=== PATIENT | male | born 1965 | race Caucasian/White ===

== ENCOUNTER 2017-10-03 10:25 | Observation (INO) ==
[2017-10-03] MEDS ORDERED: Sod Chloride 0.9% Inj 1,000 ML IV.SIG ONE (10:57)
--- NOTE | 2017-10-03 11:29 | XR ---
EXAM DATE: 10/03/2017 11:25 AM EDT AGE/SEX: 52 years / Male INDICATIONS: Chest pain with dizziness since last night CLINICAL DATA: This is the patient's initial encounter. Patient reports that signs and symptoms have been present for 2 days and indicates a pain score of 6/10. MEDICAL/SURGICAL HISTORY: None. None. COMPARISON: [facility] [place], CHEST SINGLE AP, 12/22/2015. . FINDINGS: A single AP view of the chest demonstrates the lungs to be symmetrically aerated without evidence of mass, infiltrate or effusion. The cardiomediastinal contours are unremarkable. Osseous structures a re intact. CONCLUSION: Negative examination. Electronically signed by: Arnel Laird MD 10/03/2017 11:28 AM EDT
--- NOTE | 2017-10-03 11:34 | CT ---
EXAM DATE: 10/03/2017 11:31 AM EDT AGE/SEX: 52 years / Male INDICATIONS: Dizziness. CLINICAL DATA: This is the patient's initial encounter. Patient reports that signs and symptoms have been present for 1 week and indicates a pain score of 0/10. MEDICAL/SURGICAL HISTORY: Cardiovascular disease. Hypertension. Coronary artery stent. RADIATION DOSE: 56.50 CTDI (mGy) COMPARISON: No prior exams available for comparison. TECHNIQUE: CT of the head without contrast. Using automated exposure control and adjustment of the mA and/or kV according to patient size, radiation dose was kept as low as reasonably achievable to ob tain optimal diagnostic quality images. DICOM format image data is available electronically for revi ew and comparison. FINDINGS: Cerebrum: The ventricles are normal for age. No evidence of midline shift, mass lesion, hemorrhage or acute infarction. No extraaxial fluid collections are seen. Posterior Fossa: The cerebellum and brainstem are intact. The 4th ventricle is midline. The cerebe llopontine angle is unremarkable. Extracranial: The visualized portion of the orbits is intact. Skull: The calvaria is intact. No evidence of skull fracture. CONCLUSION: 1. Negative CT Head non contrast. 2. No evidence of acute infarct, hemorrhage, mass or edema. . Electronically signed by: Cyril Briggs MD 10/03/2017 11:32 AM EDT
[2017-10-03 11:54] LABS: Baso # (Auto) 0.3 th/mm3 (0.0-0.2); Baso % (Auto) 3.4 % (0.0-2.0); Eos % (Auto) 0.4 % (0.0-4.0); Hematocrit 39.8 % (39.0-51.0); Hemoglobin 13.8 gm/dL (13.0-17.0); Lymph # (Auto) 1.3 th/mm3 (1.0-4.8); Lymph % (Auto) 16.5 % (9.0-44.0); Mean Corpuscular HGB Conc 34.8 % (32.0-36.0); Mean Corpuscular Hemoglobin 32.3 pg (27.0-34.0); Mean Corpuscular Volume 92.9 fL (80.0-100.0); Mean Platelet Volume 7.2 fL (7.0-11.0); Mono # (Auto) 0.5 th/mm3 (0.0-0.9); Mono % (Auto) 5.7 % (0.0-8.0); Platelet Count 259 th/mm3 (150-450); Red Blood Count 4.28 mil/mm3 (4.50-5.90); Red Cell Distribution Width 12.2 % (11.6-17.2); White Blood Count 8.1 th/mm3 (4.0-11.0)
[2017-10-03 12:00] LABS: Chloride 106 meq/L (98-107); Sodium 140 meq/L (136-145)
--- NOTE | 2017-10-03 12:02 | ED ---
HPI General Chief complaint: Dizziness Stated complaint: Dizziness/sweating/confusion Time Seen by Provider: 10/03/17 10:49 Source: patient Mode of arrival: ambulatory Limitations: no limitations History of Present Illness HPI narrative: Patient is a 52-year-old male with history of coronary artery disease with one cardiac stent placed 2 years ago, hypertension and hyperlipidemia, was sent to the emergency room by his primary care doctor, Dr. Romano for evaluation of near syncopal episode. Patient reports that he has not been feeling well since last night. Patient reports that symptoms began while he was making dinner last night. Patient reports that he was feeling hot and sweaty, reports that it felt as if everything was "closing in on me," reports that he began to have blurry vision with dizziness and headache. Patient reports that he went to Dr. Romano's office today for evaluation of this, he was sent to the emergency room for evaluation. Patient denies any chest pain at this time, reports that the dizziness has improved. Patient reports that symptoms last night were atypical for him as he has never had these symptoms in the past. Patient denies any syncopal episode but does report that he felt as if he was going to pass out. Patient denies any fever or chills, denies any cough or congestion, patient with no other complaints. Related Data Home Medications Medication Instructions Recorded Confirmed aspirin [Aspir-81] 81 mg PO DAILY 10/03/17 10/03/17 atorvastatin 40 mg PO DAILY 10/03/17 10/03/17 clopidogrel [Plavix] 75 mg PO DAILY 10/03/17 10/03/17 hydrocodone-acetaminophen 1 tab PO Q4-6H PRN 10/03/17 10/03/17 lorazepam 0.5 mg PO DAILY 10/03/17 10/03/17 losartan 50 mg PO DAILY 10/03/17 10/03/17 metoprolol tartrate 12.5 mg PO BID 10/03/17 10/03/17 Allergies Allergy/AdvReac Type Severity Reaction Status Date / Time No Known Allergies Allergy Verified 10/03/17 11:22 Review of Systems Except as stated in HPI: all other systems reviewed are negative [facility] Medical History Medical History Hypertension (Acute) Surgical History Surgical History Stented coronary artery (Acute) Social History Social History Substance History: No History of Abuse Smoking Status: Never smoker How Often Do You Have a Drink Containing Alcohol: 2 to 4 times a month Recent Travel in [facility] within the Last 8 Weeks: No Recent Out of Country Travel within the Last 8 Weeks: No Immunization History Tetanus Immunization: >5 Years Hx Influenza Vaccine This Season: No Exam Narrative Exam Narrative: GENERAL: moderate distress SKIN: Focused skin assessment warm/dry. HEAD: Atraumatic. Normocephalic. EYES: Pupils equal and round. No scleral icterus. No injection or drainage. ENT: No nasal bleeding or discharge. Mucous membranes pink and moist. NECK: Trachea midline. No JVD. CARDIOVASCULAR: Regular rate and rhythm. No murmur appreciated. RESPIRATORY: No accessory muscle use. Clear to auscultation. Breath sounds equal bilaterally. GASTROINTESTINAL: Abdomen soft, non-tender, nondistended. Hepatic and splenic margins not palpable. MUSCULOSKELETAL: No obvious deformities. No clubbing. No cyanosis. No edema. NEUROLOGICAL: Awake and alert. No obvious cranial nerve deficits. Motor grossly within normal limits. Normal speech. CN 2-12 grossly intact with no neurological deficits PSYCHIATRIC: Anxious mood and affect; insight and judgment normal. Course Initial Documented Vital Signs Temperature 99.3 F 10/03/17 10:32 Pulse Rate 77 10/03/17 10:32 Respiratory Rate 16 10/03/17 10:32 Blood Pressure 149/91 H 10/03/17 10:32 Pulse Oximetry 99 10/03/17 10:32 Last Documented Vital Signs Temperature 99.3 F 10/03/17 10:32 Pulse Rate 72 10/03/17 14:18 Respiratory Rate 18 10/03/17 14:18 Blood Pressure 140/89 10/03/17 14:18 Pulse Oximetry 98 10/03/17 14:18 Medical Decision Making MDM Narrative Medical decision making narrative: During the course of the patients emergency department visit, the patients history, examination, and differential diagnosis were reviewed with the patient. The patient was placed on a set up mechanic automatic line with oximetry and frequent blood pressure monitoring. The patient had an IV access obtained and blood work sent for analysis. A syncope workup was initiated The patient was initially provided with IVF Labs and studies were reviewed - plan to give aspirin and obs for near syncope Discussed case with Dr. Romano's [employer] - patient was sent to the ER for admission as the last time he had these symptoms - he required 1 cardiac stent. Patient now agreeable to observation. Case reviewed with Dr. Mercer who accepts pt to service Differential Diagnosis Differential Diagnosis: Differential includes ACS, arrhythmia, orthostatic hypotension, electrolyte abnormality, VBI Medical Records Medical records reviewed: Yes I reviewed the patient's medical records. Lab Data Lab results reviewed: Yes I reviewed the patient's lab results. Result diagrams: 10/03/17 11:35 10/03/17 11:35 Lab Results 10/03/17 10/03/17 10/03/17 Range/Units 11:35 11:35 11:35 CBC w Diff Auto diff final WBC 8.1 (4.0-11.0) th/mm3 RBC 4.28 L (4.50-5.90) mil/mm3 Hgb 13.8 (13.0-17.0) gm/dL Hct 39.8 (39.0-51.0) % MCV 92.9 (80.0-100.0) fL MCH 32.3 (27.0-34.0) pg MCHC 34.8 (32.0-36.0) % RDW 12.2 (11.6-17.2) % Plt Count 259 (150-450) th/mm3 MPV 7.2 (7.0-11.0) fL Neut % (Auto) 74.0 H (16.0-70.0) % Lymph % (Auto) 16.5 (9.0-44.0) % [place] % (Auto) 5.7 (0.0-8.0) % Eos % (Auto) 0.4 (0.0-4.0) % Baso % (Auto) 3.4 H (0.0-2.0) % Neut # (Auto) 6.0 (1.8-7.7) th/mm3 Lymph # (Auto) 1.3 (1.0-4.8) th/mm3 [place] # (Auto) 0.5 (0.0-0.9) th/mm3 Eos # (Auto) 0.0 (0.0-0.4) th/mm3 Baso # (Auto) 0.3 H (0.0-0.2) th/mm3 WBC Differential . Differential Comment . PT 10.4 (9.8-11.6) sec INR 1.0 Ratio Sodium 140 (136-145) meq/L Potassium 4.0 (3.5-5.1) meq/L Chloride 106 (98-107) meq/L Carbon Dioxide 24.3 (21.0-32.0) meq/L Anion Gap 10 (5-15) meq/L BUN 14 (7-18) mg/dL Creatinine 0.89 (0.60-1.30) mg/dL Estimated GFR 89 (>89) mL/min Random Glucose 98 (74-106) mg/dL Calcium 8.7 (8.5-10.1) mg/dL Total Bilirubin 0.5 (0.2-1.0) mg/dL AST 21 (15-37) U/L ALT 51 (12-78) U/L Alkaline Phosphatase 84 (45-117) U/L Troponin I Less than 0.02 L (0.02-0.05) ng/mL Total Protein 7.8 (6.4-8.2) g/dL Albumin 4.2 (3.4-5.0) g/dL Ur Collection Type Urine Color (Yellw/Straw) Urine Clarity (Clear) Urine pH (5.0-8.5) Ur Specific [place] (1.002-1.035) Urine Protein (Neg-Trace) mg/dL Urine Glucose (UA) (Negative) mg/dL Urine Ketones (Negative) mg/dL Urine Occult Blood (Negative) Urine Nitrate (Negative) Urine Bilirubin (Negative) Urine Urobilinogen (Less than 2) mg/dL Ur Leukocyte Esterase (Negative) Amorphous Sediment (None) /hpf Urine Bacteria (None) /hpf Micro UA Comment Urine Culture Comments 10/03/17 Range/Units 11:50 CBC w Diff WBC (4.0-11.0) th/mm3 RBC (4.50-5.90) mil/mm3 Hgb (13.0-17.0) gm/dL Hct (39.0-51.0) % MCV (80.0-100.0) fL MCH (27.0-34.0) pg MCHC (32.0-36.0) % RDW (11.6-17.2) % Plt Count (150-450) th/mm3 MPV (7.0-11.0) fL Neut % (Auto) (16.0-70.0) % Lymph % (Auto) (9.0-44.0) % [place] % (Auto) (0.0-8.0) % Eos % (Auto) (0.0-4.0) % Baso % (Auto) (0.0-2.0) % Neut # (Auto) (1.8-7.7) th/mm3 Lymph # (Auto) (1.0-4.8) th/mm3 [place] # (Auto) (0.0-0.9) th/mm3 Eos # (Auto) (0.0-0.4) th/mm3 Baso # (Auto) (0.0-0.2) th/mm3 WBC Differential Differential Comment PT (9.8-11.6) sec INR Ratio Sodium (136-145) meq/L Potassium (3.5-5.1) meq/L Chloride (98-107) meq/L Carbon Dioxide (21.0-32.0) meq/L Anion Gap (5-15) meq/L BUN (7-18) mg/dL Creatinine (0.60-1.30) mg/dL Estimated GFR (>89) mL/min Random Glucose (74-106) mg/dL Calcium (8.5-10.1) mg/dL Total Bilirubin (0.2-1.0) mg/dL AST (15-37) U/L ALT (12-78) U/L Alkaline Phosphatase (45-117) U/L Troponin I (0.02-0.05) ng/mL Total Protein (6.4-8.2) g/dL Albumin (3.4-5.0) g/dL Ur Collection Type Clean catch Urine Color Yellow (Yellw/Straw) Urine Clarity Turbid H (Clear) Urine pH 6.0 (5.0-8.5) Ur Specific [place] 1.020 (1.002-1.035) Urine Protein Negative (Neg-Trace) mg/dL Urine Glucose (UA) Negative (Negative) mg/dL Urine Ketones Negative (Negative) mg/dL Urine Occult Blood Negative (Negative) Urine Nitrate Negative (Negative) Urine Bilirubin Negative (Negative) Urine Urobilinogen 0.2 (Less than 2) mg/dL Ur Leukocyte Esterase Negative (Negative) Amorphous Sediment Moderate H (None) /hpf Urine Bacteria Few H (None) /hpf Micro UA Comment Culture not ind Urine Culture Comments Culture not ind Imaging Data Attestation: I personally reviewed and interpreted this imaging study as follows : Radiologist's impression: Chest X-Ray 10/03/17 10:57 CONCLUSION: Negative examination. Head CT 10/03/17 10:58 CONCLUSION: 1. Negative CT Head non contrast. 2. No evidence of acute infarct, hemorrhage, mass or edema. . ECG Data EKG Prior to Arrival: No Attestation: I personally reviewed and interpreted this ECG as follows: Interpretation: EKG at 1142: Normal sinus rhythm at 69 bpm, QT/QTC 402/421, there are no acute ST-T wave changes Discharge Plan Discharge Disposition Patient Disposition: 30 Still Patient Physicians Team ED Provider: Angle Rivera Primary Care Provider: Jett Romano Rxs /Orders / Referrals /Forms Prescriptions: No Action aspirin [Aspir-81] 81 mg Tablet,Delayed Release (Dr/Ec) 81 mg PO DAILY RF: 0 losartan 50 mg Tablet 50 mg PO DAILY RF: 0 atorvastatin 40 mg Tablet 40 mg PO DAILY RF: 0 hydrocodone-acetaminophen 5-325 mg Tablet 1 tab PO Q4-6H PRN (Reason: Pain) RF: 0 clopidogrel [Plavix] 75 mg Tablet 75 mg PO DAILY RF: 0 lorazepam 0.5 mg Tablet 0.5 mg PO DAILY RF: 0 metoprolol tartrate 25 mg Tablet 12.5 mg PO BID RF: 0 Status ED Status: Admitted Observation Patient
[2017-10-03 12:03] LABS: Albumin 4.2 g/dL (3.4-5.0); Anion Gap 10 meq/L (5-15); Calcium 8.7 mg/dL (8.5-10.1); Carbon Dioxide 24.3 meq/L (21.0-32.0); Glucose,Random 98 mg/dL (74-106)
[2017-10-03 12:04] LABS: Blood Urea Nitrogen 14 mg/dL (7-18)
[2017-10-03 12:06] LABS: Alanine Aminotransferase 51 U/L (12-78)
[2017-10-03 12:07] LABS: Aspartate Aminotransferase 21 U/L (15-37); Glomerular Filtration Rate 89 mL/min (>89)
[2017-10-03 12:07] LABS: Bilirubin,Urine Negative (Negative); Clarity,Urine Turbid (Clear); Color,Urine Yellow (Yellw/Straw); Glucose,Urine (UA) Negative (Negative); Leukocyte Esterase,Urine Negative (Negative); Nitrite,Urine Negative (Negative); Urobilinogen,Urine 0.2 mg/dL (Less than 2)
[2017-10-03 12:08] LABS: Total Protein 7.8 g/dL (6.4-8.2)
[2017-10-03 12:09] LABS: Amorphous Sediment,Urine Moderate /hpf
[2017-10-03 12:09] LABS: Alkaline Phosphatase 84 U/L (45-117)
[2017-10-03 12:10] LABS: Bacteria,Urine Few /hpf
[2017-10-03 12:12] LABS: Prothrombin Time 10.4 sec (9.8-11.6)
[2017-10-03 16:15] LABS: Creatine Kinase 86 U/L (39-308)
--- NOTE | 2017-10-03 16:47 | P.HP ---
[facility] of [facility] Illness [facility] Primary Care Physician: Jett Romano MD History of Present Illness: This is a 52-year-old white male with history of coronary artery disease and placement of a coronary artery stent 2 years ago, hypertension, and hyperlipidemia, that was sent to the emergency room by his primary care physician (Dr. Romano). He was seen this morning and Dr. Romano's office and sent to the ER for possible admission for underlying cardiac symptoms. Patient reports that in the last 5 days he has had 3 separate incidents where he would break out in a sweat and then feel as if he was going to pass out. He had may be vague minimal chest tightness and felt some slight shortness of breath when these episodes occur. Usually he would stop and just sit down or lie down for about 10-15 minutes and they would subside. He said 3 of these episodes since Tuesday of last week with the last one being last night. He does not feel any heart palpitations. He had a coronary artery stent placed 2 years ago and reportedly had symptoms similar to this then. He denies any cough, wheezing, exertional chest pain. Medical history: Hypertension Hyperlipidemia Coronary artery disease with prior PTCA and stent in 2016 Anxiety Chronic low back pain with lumbar radiculopathy No history of lung disease, liver disease, kidney disease, peptic ulcer disease , stroke, seizures, thyroid disease, cancer. Surgical history: PTCA with prior coronary artery stent in 2016 Allergies: None Medications: Aspirin 81 mg once a day Clopidogrel 75 mg once a day Atorvastatin 40 mg once a day Lorazepam 0.5 mg 1 at bedtime Hydrocodoneacetaminophen 10/325 1 tablet 3 times a day Losartan 50 mg once a day Metoprolol 25 mg half a tablet twice a day Family history: Mother at age 56 of lung cancer Father at age 57 ultimately liver failure secondary to antirejection medications for his heart transplant. He also had a prior heart attack. Social history: He is He has never smoked. He only has occasional drink of alcohol consisting of either beer or wine or liquor. 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 - Diagnosis (1) Near syncope (2) Atypical chest pain (3) Coronary artery disease (4) History of coronary artery stent placement (5) Hypertension (6) Hyperlipidemia (7) Anxiety (8) Chronic low back pain Review of Systems Review of systems: General: No fever or chills, weight loss, or chronic fatigue HEENT: No visual complaint, no sore throat, no runny nose, no ear pain Cardiovascular: As noted in the history of present illness Pulmonary: No cough, hemoptysis, or wheezing GI: He did have some nausea in couple episodes of brief vomiting with his near syncopal episode. He denies any heartburn in, indigestion, abdominal pain, constipation, diarrhea, rectal bleeding, or melena. : Denies any dysuria, urgency, frequency of urination, or hematuria Musculoskeletal: He has chronic low back pain with some intermittent lumbar radicular symptoms more on the right side than the left side. Psychiatry: He gets some slight anxiety and claustrophobia at times. He uses Lorazepam at night to help with this at times. Extremities: Denies any edema or calf pain Neuro: He denies any numbness or tingling in his extremities, focal motor deficits. His mentioned that when he has had these episodes he seems a little disoriented for a brief moment. He did not display any seizure like activity. He has just occasional headache. Denies any trouble swallowing or slurring of his speech. He has no problems with ambulation or his gait. [facility] - History History Provided By: Patient - Medical History Medical History: Medical History (Last Updated 10/03/17 @ 15:05 by Federico Mercer MD) Anxiety Chronic low back pain Coronary artery disease Hyperlipidemia Hypertension - Surgical History Surgical History: Surgical History (Last Updated 10/03/17 @ 15:06 by Federico Mercer MD) S/P angioplasty with stent Stented coronary artery - Family History Family History: Family History (Last Updated 10/03/17 @ 15:10 by Federico Mercer MD) Mother Lung cancer Father History of heart attack History of heart transplant History of liver failure Father No problems noted. - Tobacco History Second Hand Smoke Exposure: No Smoking Status: Never smoker - Alcohol History How Often Do You Have a Drink Containing Alcohol: Monthly or less - Substance Use History Substance History: No History of Abuse - Travel History Recent Travel in the [place] Within the Last 8 Weeks: No Recent Travel Out of the Country Within the Last 8 Weeks: No - Immunization History Tetanus Immunization: >5 Years Hx Influenza Vaccine This Season: No Medications and Allergies Active Medications: Active Medications Hydrocodone Bitart/Acetaminophen ([place] 10/325) 1 tab PO Q8HR PRN PRN Reason: Back Pain Aspirin (Ecotrin) 81 mg PO DAILY [facility] Atorvastatin Calcium (Lipitor) 40 mg PO DAILY [facility] Clopidogrel Bisulfate (Plavix) 75 mg PO DAILY [facility] Lorazepam (Ativan) 0.5 mg PO DAILY [facility] Losartan Potassium (Cozaar) 50 mg PO DAILY [facility] Metoprolol Tartrate (Lopressor) 12.5 mg PO BID [facility] Sodium Chloride (Ns Flush) 2 ml IV.FLUSH PRN PRN PRN Reason: FLUSH AFTER USING IV ACCESS Sodium Chloride (Ns Flush) 2 ml IV.FLUSH BID [facility]IDAN Sodium Chloride (Ns Flush) 2 ml IV.FLUSH PRN PRN PRN Reason: FLUSH AFTER USING IV ACCESS Allergies Allergy/AdvReac Type Severity Reaction Status Date / Time No Known Allergies Allergy Verified 10/03/17 11:22 Home Medications Medication Instructions Recorded Confirmed Type RX: atorvastatin 40 mg PO DAILY 10/03/17 10/03/17 History RX: lorazepam 0.5 mg PO DAILY 10/03/17 10/03/17 History RX: losartan 50 mg PO DAILY 10/03/17 10/03/17 History RX: metoprolol tartrate 12.5 mg PO BID 10/03/17 10/03/17 History aspirin [Aspir-81] 81 mg PO DAILY 10/03/17 10/03/17 History clopidogrel [Plavix] 75 mg PO DAILY 10/03/17 10/03/17 History hydrocodone-acetaminophen [[place]] 1 tab PO Q8HR PRN 10/03/17 10/03/17 History Exam Vital signs: Vital Signs 10/03/17 10:32 10/03/17 11:22 10/03/17 12:29 Temperature 99.3 F Pulse Rate 77 78 Respiratory Rate 16 18 Blood Pressure 149/91 H 144/78 H Pulse Oximetry 99 98 98 10/03/17 14:18 Temperature Pulse Rate 72 Respiratory Rate 18 Blood Pressure 140/89 Pulse Oximetry 98 Intake & Output 10/02/17 10/03/17 10/03/17 18:59 06:59 18:59 Intake Total 1000 / 1000 Balance 1000 / 1000 Weight 96.5 kg Intake: IV 1000 / 1000 NS Inj 1,000 ML @ Wide Open IV. 1000 / 1000 SIG BOLUS ONE Rx#:[id number] Narrative: Physical exam: This is a pleasant white male in no distress. HEENT: Pupils equal, EOMs intact, sclera nonicteric, mouth without lesions, TMs intact, nose without lesions Neck: No JVD, neck is supple, no carotid bruit Heart: Regular rate and rhythm without murmurs or gallops Lungs: Clear to auscultation Abdomen: Soft, nontender, no masses, no organomegaly Extremities: No edema, pulses palpated, no calf tenderness Skin: Without lesions or rash Neuro: Alert, oriented, normal motor exam, sensation intact, cranial nerves intact Results - Labs CBC & Chem 7: 10/03/17 11:35 10/03/17 11:35 Labs: Laboratory Results - last 24 hr 10/03/17 10/03/17 10/03/17 11:35 11:35 11:35 CBC w Diff Auto diff final WBC 8.1 RBC 4.28 L Hgb 13.8 Hct 39.8 MCV 92.9 MCH 32.3 MCHC 34.8 RDW 12.2 Plt Count 259 MPV 7.2 Neut % (Auto) 74.0 H Lymph % (Auto) 16.5 [place] % (Auto) 5.7 Eos % (Auto) 0.4 Baso % (Auto) 3.4 H Neut # (Auto) 6.0 Lymph # (Auto) 1.3 [place] # (Auto) 0.5 Eos # (Auto) 0.0 Baso # (Auto) 0.3 H WBC Differential . Differential Comment . PT 10.4 INR 1.0 Sodium 140 Potassium 4.0 Chloride 106 Carbon Dioxide 24.3 Anion Gap 10 BUN 14 Creatinine 0.89 Estimated GFR 89 Random Glucose 98 Calcium 8.7 Total Bilirubin 0.5 AST 21 ALT 51 Alkaline Phosphatase 84 Troponin I Less than 0.02 L Total Protein 7.8 Albumin 4.2 Ur Collection Type Urine Color Urine Clarity Urine pH Ur Specific [place] Urine Protein Urine Glucose (UA) Urine Ketones Urine Occult Blood Urine Nitrate Urine Bilirubin Urine Urobilinogen Ur Leukocyte Esterase Amorphous Sediment Urine Bacteria Micro UA Comment Urine Culture Comments 10/03/17 11:50 CBC w Diff WBC RBC Hgb Hct MCV MCH MCHC RDW Plt Count MPV Neut % (Auto) Lymph % (Auto) [place] % (Auto) Eos % (Auto) Baso % (Auto) Neut # (Auto) Lymph # (Auto) [place] # (Auto) Eos # (Auto) Baso # (Auto) WBC Differential Differential Comment PT INR Sodium Potassium Chloride Carbon Dioxide Anion Gap BUN Creatinine Estimated GFR Random Glucose Calcium Total Bilirubin AST ALT Alkaline Phosphatase Troponin I Total Protein Albumin Ur Collection Type Clean catch Urine Color Yellow Urine Clarity Turbid H Urine pH 6.0 Ur Specific [place] 1.020 Urine Protein Negative Urine Glucose (UA) Negative Urine Ketones Negative Urine Occult Blood Negative Urine Nitrate Negative Urine Bilirubin Negative Urine Urobilinogen 0.2 Ur Leukocyte Esterase Negative Amorphous Sediment Moderate H Urine Bacteria Few H Micro UA Comment Culture not ind Urine Culture Comments Culture not ind - Imaging Impressions Chest X-Ray 10/03/17 10:57 CONCLUSION: Negative examination. Head CT 10/03/17 10:58 CONCLUSION: 1. Negative CT Head non contrast. 2. No evidence of acute infarct, hemorrhage, mass or edema. . Caprini VTE Risk Assessment Caprini VTE Risk Assessment: No/Low Risk (score <= 1) Caprini Risk Assessment Model: Point Value = 1 Point Value = 2 Point Value = 3 Point Value = 5 Age 41-60 Minor surgery BMI > 25 kg/m2 Swollen legs Varicose veins or History of unexplained or recurrent spontaneous Oral contraceptives or hormone replacement Sepsis (< 1 month) Serious lung disease, including pneumonia (< 1 month) Abnormal pulmonary function Acute myocardial infarction Congestive heart failure (< 1 month) History of inflammatory bowel disease Medical patient at bed rest Age 61-74 Arthroscopic surgery Major open surgery (> 45 min) Laparoscopic surgery (> 45 min) Malignancy Confined to bed (> 72 hours) Immobilizing plaster cast Central venous access Age >= 75 History of VTE Family history of VTE Factor V Leiden Prothrombin [id number] Lupus anticoagulant Anticardiolipin antibodies Elevated serum homocysteine Heparin-induced thrombocytopenia Other congenital or acquired thrombophilia Stroke (< 1 month) Elective arthroplasty Hip, pelvis, or leg fracture Acute spinal cord injury (< 1 month) Prophylaxis Regimen: Total Risk Factor Score Risk Level Prophylaxis Regimen 0-1 Low Early ambulation 2 Moderate Order ONE of the following: *Sequential Compression Device (SCD) *Heparin 5000 units SQ BID 3-4 Higher Order ONE of the following medications: *Heparin 5000 units SQ TID *Enoxaparin/Lovenox 40 mg SQ daily (WT < 150 kg, CrCl > 30 mL/min) *Enoxaparin/Lovenox 30 mg SQ daily (WT < 150 kg, CrCl > 10-29 mL/min) *Enoxaparin/Lovenox 30 mg SQ BID (WT < 150 kg, CrCl > 30 mL/min) AND/OR *Sequential Compression Device (SCD) 5 or more Highest Order ONE of the following medications: *Heparin 5000 units SQ TID (Preferred with Epidurals) *Enoxaparin/Lovenox 40 mg SQ daily (WT < 150 kg, CrCl > 30 mL/min) *Enoxaparin/Lovenox 30 mg SQ daily (WT < 150 kg, CrCl > 10-29 mL/min) *Enoxaparin/Lovenox 30 mg SQ BID (WT < 150 kg, CrCl > 30 mL/min) AND *Sequential Compression Device (SCD) Assessment and Plan - Assessment (1) Near syncope Code(s): R55 - Syncope and collapse Status: Acute (2) Atypical chest pain Code(s): R07.89 - Other chest pain Status: Acute (3) Coronary artery disease Code(s): I25.10 - Atherosclerotic heart disease of [place] coronary artery without angina pectoris Status: Chronic (4) History of coronary artery stent placement Code(s): Z95.5 - Presence of coronary angioplasty implant and graft Status: Chronic (5) Hypertension Code(s): I10 - Essential (primary) hypertension Status: Chronic (6) Hyperlipidemia Code(s): E78.5 - Hyperlipidemia, unspecified Status: Chronic (7) Anxiety Code(s): F41.9 - Anxiety disorder, unspecified Status: Chronic (8) Chronic low back pain Code(s): M54.5 - Low back pain; G89.29 - Other chronic pain Status: Chronic - Plan Plan: Patient is being admitted to be monitored on telemetry. Repeat serum troponin levels and EKGs have been ordered every 6 hours 2. I talked with cardiology, Dr. Trey Spangler, and he suggested ordering a nuclear medicine perfusion scan and if that is negative then he can follow up with him as an outpatient for possible 24 hour Holter monitor. Certainly if his telemetry shows any arrhythmia and further evaluation that would be done prior to his discharge. He will be maintained on his regular medications for now. No further recommendations at this time. (5) Hypertension Qualifiers: Hypertension type: essential hypertension Qualified Code(s): I10 - Essential (primary) hypertension
[2017-10-03] MEDS: Metoprolol Tartrate 25 MG Tablet PO SCH (21:41)
[2017-10-03] MEDS: LORazepam 0.5 MG Tablet PO SCH (21:41)
[2017-10-03 21:46] LABS: Creatine Kinase 83 U/L (39-308)
[2017-10-04] MEDS: Metoprolol Tartrate 25 MG Tablet PO SCH (08:44)
[2017-10-04] MEDS: LORazepam 0.5 MG Tablet PO SCH (08:44)
--- NOTE | 2017-10-04 10:52 | P.PN ---
Subjective Interval history: Patient denies any chest pain, shortness of breath. He admits to being a little bit anxious this morning because he is concerned that his nuclear medicine test will make him claustrophobic. He states he did feel little sweaty last night but was able to talk himself out of it. His electronic device monitor has not showed any significant arrhythmia other than he did have some slight bradycardia during his sleep probably related to his beta-jenni. Physical Exam Vital signs: Vital Signs 10/03/17 11:22 10/03/17 12:29 10/03/17 14:18 Temperature Pulse Rate 78 72 Respiratory Rate 18 18 Blood Pressure 144/78 H 140/89 Pulse Oximetry 98 98 98 10/03/17 16:00 10/03/17 16:53 10/03/17 19:15 Temperature 97.4 F L 97.1 F L Pulse Rate 74 67 74 Respiratory Rate 17 19 Blood Pressure 143/82 H 125/66 Pulse Oximetry 97 95 10/03/17 20:00 10/04/17 00:00 10/04/17 04:00 Temperature 97.7 F 97.1 F L Pulse Rate 73 69 71 Respiratory Rate 20 22 Blood Pressure 123/84 128/83 Pulse Oximetry 96 99 10/04/17 08:00 Temperature 98.0 F Pulse Rate 77 Respiratory Rate 17 Blood Pressure 132/80 Pulse Oximetry 96 Intake & Output 10/03/17 10/04/17 10/04/17 18:59 06:59 18:59 Intake Total 1000 / 1000 240 / 240 Output Total 600 / 600 Balance 1000 / 1000 -360 / -360 Weight 96.5 kg Intake: IV 1000 / 1000 NS Inj 1,000 ML @ Wide Open IV. 1000 / 1000 SIG BOLUS ONE Rx#:[id number] Oral 240 / 240 Output: Urine 600 / 600 Other: # Voids 1 Narrative: Exam: This is a pleasant white male in no distress. HEENT: Pupils equal, EOMs intact, mouth without lesions Neck: No JVD, neck is supple Heart: Regular rate and rhythm without murmurs or gallops Lungs: Clear to auscultation Abdomen: Soft, nontender, no masses Extremities: No edema, pulses palpated, no calf tenderness Neuro: Alert, oriented, normal motor exam, sensation intact Results - Labs CBC & Chem 7: 10/03/17 11:35 10/03/17 11:35 Laboratory Results - last 24 hr 10/03/17 10/03/17 10/03/17 11:35 11:35 11:35 CBC w Diff Auto diff final WBC 8.1 RBC 4.28 L Hgb 13.8 Hct 39.8 MCV 92.9 MCH 32.3 MCHC 34.8 RDW 12.2 Plt Count 259 MPV 7.2 Neut % (Auto) 74.0 H Lymph % (Auto) 16.5 [place] % (Auto) 5.7 Eos % (Auto) 0.4 Baso % (Auto) 3.4 H Neut # (Auto) 6.0 Lymph # (Auto) 1.3 [place] # (Auto) 0.5 Eos # (Auto) 0.0 Baso # (Auto) 0.3 H WBC Differential . Differential Comment . PT 10.4 INR 1.0 Sodium 140 Potassium 4.0 Chloride 106 Carbon Dioxide 24.3 Anion Gap 10 BUN 14 Creatinine 0.89 Estimated GFR 89 Random Glucose 98 Calcium 8.7 Total Bilirubin 0.5 AST 21 ALT 51 Alkaline Phosphatase 84 Total Creatine Kinase Troponin I Less than 0.02 L Total Protein 7.8 Albumin 4.2 Ur Collection Type Urine Color Urine Clarity Urine pH Ur Specific [place] Urine Protein Urine Glucose (UA) Urine Ketones Urine Occult Blood Urine Nitrate Urine Bilirubin Urine Urobilinogen Ur Leukocyte Esterase Amorphous Sediment Urine Bacteria Micro UA Comment Urine Culture Comments 10/03/17 10/03/17 10/03/17 11:50 15:30 21:00 CBC w Diff WBC RBC Hgb Hct MCV MCH MCHC RDW Plt Count MPV Neut % (Auto) Lymph % (Auto) [place] % (Auto) Eos % (Auto) Baso % (Auto) Neut # (Auto) Lymph # (Auto) [place] # (Auto) Eos # (Auto) Baso # (Auto) WBC Differential Differential Comment PT INR Sodium Potassium Chloride Carbon Dioxide Anion Gap BUN Creatinine Estimated GFR Random Glucose Calcium Total Bilirubin AST ALT Alkaline Phosphatase Total Creatine Kinase 86 83 Troponin I Less than 0.02 L Less than 0.02 L Total Protein Albumin Ur Collection Type Clean catch Urine Color Yellow Urine Clarity Turbid H Urine pH 6.0 Ur Specific [place] 1.020 Urine Protein Negative Urine Glucose (UA) Negative Urine Ketones Negative Urine Occult Blood Negative Urine Nitrate Negative Urine Bilirubin Negative Urine Urobilinogen 0.2 Ur Leukocyte Esterase Negative Amorphous Sediment Moderate H Urine Bacteria Few H Micro UA Comment Culture not ind Urine Culture Comments Culture not ind - Imaging Impressions Chest X-Ray 10/03/17 10:57 CONCLUSION: Negative examination. Head CT 10/03/17 10:58 CONCLUSION: 1. Negative CT Head non contrast. 2. No evidence of acute infarct, hemorrhage, mass or edema. . Impressions Myocardial Perfusion Scan Nuc Med 10/04/17 00:00 CONCLUSION: Suspected mild ischemia in the basilar and mid anterior wall. Assessment and Plan - Assessment (1) Near syncope Code(s): R55 - Syncope and collapse Status: Acute (2) Atypical chest pain Code(s): R07.89 - Other chest pain Status: Acute (3) Coronary artery disease Code(s): I25.10 - Atherosclerotic heart disease of [place] coronary artery without angina pectoris Status: Chronic (4) History of coronary artery stent placement Code(s): Z95.5 - Presence of coronary angioplasty implant and graft Status: Chronic (5) Hypertension Code(s): I10 - Essential (primary) hypertension Status: Chronic (6) Hyperlipidemia Code(s): E78.5 - Hyperlipidemia, unspecified Status: Chronic (7) Anxiety Code(s): F41.9 - Anxiety disorder, unspecified Status: Chronic (8) Chronic low back pain Code(s): M54.5 - Low back pain; G89.29 - Other chronic pain Status: Chronic - Plan Plan: His Troponin levels have been good. EKG's with no acute changes. He has displayed no significant arrhythmia while in the hospital. His myocardial perfusion scan showed suspected mild ischemia in the basilar and mid anterior wall with an EF of 63%. It was also having a low risk of < 1%. I discussed these finding with cardiology (Dr Spangler) who does not recommend a cardiac cath since it showed low risk findings. He just recommended adding Imdur 30mg daily and have him do a followup visit with him within the next 1-2 weeks. He states he will likely order a 24 hour Holter. I will discuss this with his PCP (Dr Paul) and have them order a 24 hour Holter to be done as an outpatient. He will be maintained on his home medications. His electronic device monitor has not showed any significant arrhythmia while he has been in the hospital. (5) Hypertension Qualifiers: Hypertension type: essential hypertension Qualified Code(s): I10 - Essential (primary) hypertension
[2017-10-04] MEDS ORDERED: Regadenoson Inj 0.4 MG/5 ML Syringe IV.PUSH ONE (11:20)
--- NOTE | 2017-10-04 13:00 | NM ---
EXAM DATE: 10/04/2017 12:07 PM EDT AGE/SEX: 52 years / Male INDICATIONS:Coronary artery disease. . Mid chest pressure with diaphoresis for five days. CLINICAL DATA: This is the patient's initial encounter. Patient reports that signs and symptoms have been present for 4 - 6 days and indicates a pain score of 4/10. MEDICAL/SURGICAL HISTORY: Hypertension. Coronary artery stent. COMPARISON: No prior exams available for comparison. No external comparison. DOSE: 8.7 mCi Tc 99m Myoview at rest 26.1 mCi [id number] at stress 0.4 mg Lexiscan STRESS SYMPTOMS: Shortness of breath. EJECTION FRACTION: 63 % TECHNIQUE: The patient underwent pharmacologic stress with infusion of prescribed dose. Continuous ECG tracing was monitored during stress. Gated SPECT imaging was performed after stress and conventi onal SPECT imaging was performed at rest. The examination was performed on a SPECT/CT scanner, both attenuation and non-corrected datasets were reviewed. FINDINGS: Distribution: The maximum perfused segment at stress is in the septal wall. Perfusion Study: There is decreased activity seen at the mid and basilar portions of the anterior w all on the stress images. Gated Study: There are intact wall motion and wall thickening without hypokinetic or dyskinetic segm ents. The ejection fraction is calculated at 63%. RISK CATEGORY: Low (<1% Annual Motality Rate) CONCLUSION: Suspected mild ischemia in the basilar and mid anterior wall. Electronically signed by: Thom Au MD 10/04/2017 12:59 PM EDT
[2017-10-04 14:28] VITALS: BP 143/87; PULSE 83; RESP 16; TEMP 96.6; O2SAT 98
--- NOTE | 2017-10-04 15:17 | ECG ---
Date Performed: 10/03/2017 Time Performed: 11:42:37 PTAGE: 52 years EKG: Sinus rhythm WITH SINUS ARRHYTHMIA BORDERLINE LEFT AXIS DEVIATION BORDERLINE ECG Compared to PREVIOUS TRACING QT interval is shorter, anterolateral T wave changes have improved PREV IOUS TRACIN12/23/2015 05.59 DOCTOR: Rodríguez Lezama Interpretating Date/Time 10/04/2017 15:15:25
--- NOTE | 2017-10-04 15:19 | ECG ---
Date Performed: 10/03/2017 Time Performed: 15:32:17 PTAGE: 52 years EKG: Sinus rhythm WITH SINUS ARRHYTHMIA BORDERLINE LEFT AXIS DEVIATION POSSIBLE RIGHT VENTRICULAR CONDUCTION DELAY BOR DERLINE ECG Since PREVIOUS TRACING , no significant change noted PREVIOUS TRACIN10/03/2017 11.42 DOCTOR: Rodríguez Lezama Interpretating Date/Time 10/04/2017 15:18:09
--- NOTE | 2017-10-04 15:19 | ECG ---
Date Performed: 10/03/2017 Time Performed: 21:06:04 PTAGE: 52 years EKG: Sinus rhythm POSSIBLE RIGHT VENTRICULAR CONDUCTION DELAY BORDERLINE ECG Since PREVIOUS TRACING , no significant change noted PREVIOUS TRACIN10/03/2017 15.32 DOCTOR: Rodríguez Lezama Interpretating Date/Time 10/04/2017 15:19:09
== END 2017-10-04 15:03 | disposition home or self-care (01) ==
LOC: PH3 10:25 → PHED 10:25 → PHEDA 10:25 → PH3 15:09
PROVIDERS: ADMIT Family Medicine; ATTEND Family Medicine